=== PATIENT | male | born 1955 | race African-American/Black ===

== ENCOUNTER 2016-12-13 13:06 | Outpatient (CLI) | payer OTHER ==
--- NOTE | 2016-12-10 15:37 | MRI ---
MRI LUMBAR SPINE WITHOUT CONTRAST: Date: 12/10/16 TECHNIQUE: Multiplanar, multisequential imaging lumbar spine obtained. HISTORY: Lumbar radiculopathy with radiation to right leg. FINDINGS: Lumbar vertebra maintain normal height. There is mild loss of disc space at L5-S1. Mild degenerative spurring from the lumbar vertebra. Lumbar vertebra signal is normally maintained. At L1-2, there is no disc bulge or protrusion. There is facet arthrosis and hypertrophy; however, no central canal or foraminal stenosis. At L2-3, there is mild disc bulge. Moderate facet arthrosis and hypertrophy. Mild central canal sten osis. There is bilateral foraminal encroachment at this level due to the diffuse disc bulge and face t hypertrophy. At L3-4, mild disc bulge flattens the anterior thecal sac. Moderate facet hypertrophy. Mild central canal stenosis. Mild foraminal encroachment bilaterally. At L4-5, there is broad based disc bulge. Moderate facet and ligamentous hypertrophy. Mild to modera te central canal stenosis. Bilateral foraminal stenosis. At L5-S1, there is a minimal anterolisthesis. A rather prominent broad based disc bulge flattens the thecal sac. Prominent facet hypertrophy. Mild to moderate central canal stenosis. Bilateral foramin al stenosis. IMPRESSION: 1. Diffuse broad based disc bulges, most pronounced at L5-S1. There is mild to moderate central can al stenosis and bilateral foraminal stenosis at this level. 2. Mild disc bulge and central canal stenosis at L2-3, L3-4, and L4-5 as described above. POS: [facility]
== END 2016-12-13 13:07 | disposition home or self-care (01) ==
LOC: TBSIIMAG 13:06
PROVIDERS: ATTEND Neurological Surgery
DX: M51.16 Intervertebral disc disorders with radiculopathy, lumbar region (principal); M48.061 Spinal stenosis, lumbar region without neurogenic claudication
CPT/HCPCS: 72148

== ENCOUNTER 2017-04-24 22:50 | Emergency (ER) | payer OTHER ==
[2017-04-24] MEDS ORDERED: Ondansetron HCl/PF 4 MG/2 ML Vial ONE (23:18)
[2017-04-24 23:20] LABS: #Basophils 0.1 thou/uL (0.0-0.2); #Eosinphils 0.3 thou/uL (0.0-0.7); #Lymphocytes 2.5 thou/uL (1.20-3.40); #Monocytes 0.3 thou/uL (0.11-0.59); #Neutrophils 2.4 thou/uL (1.40-6.50); %Basophils 1.9 % (0.0-1.0); %Eosinophils 5.1 % (0.0-10.0); %Monocytes 5.9 % (0.0-10.0); %Neutrophils 43.2 % (42.0-75.0); Hemoglobin 13.2 g/dL (14.0-18.0); Mean Corpuscular HGB CONC 34.4 g/dL (32.0-36.0); Mean Corpuscular Hemoglobin 26.9 pg (27.0-31.0); Mean Corpuscular Volume 78.4 fl (80.0-94.0); Mean Platelet Volume 9.2 fL (7.4-10.4); Platelet Count 221 thou/uL (130-400); RBC Distribution Width 14.3 % (11.5-14.5); White Blood Cell (WBC) Count 5.6 thou/uL (4.8-10.8)
[2017-04-24 23:36] LABS: ALT (SGPT) 25 U/L (8-55); AST (SGOT) 23 U/L (5-34); Albumin 4.1 g/dL (3.5-5.0); Alkaline Phosphatase 69 U/L (40-150); Anion Gap 15 mmol/L (10-20); BUN (Urea Nitrogen) 17 mg/dL (8.4-25.7); Bilirubin, Total 0.6 mg/dL (0.2-1.2); Calc. Creatinine Clearance 0 mL/min (70-130); Calcium 9.1 mg/dL (7.8-10.44); Carbon Dioxide 24 mmol/L (22-29); Chloride 104 mmol/L (98-107); Estimated GFR-MDRD Greater than 90; Glucose 171 mg/dL (70-105); Lipase 8 U/L (8-78); Protein, Total 7.1 g/dL (6.0-8.3); Sodium 139 mmol/L (136-145)
[2017-04-24 23:38] LABS: CKMB 5.9 ng/mL (0-6.6); Troponin I 0.015 ng/mL (< 0.028)
== END 2017-04-25 00:19 | disposition home or self-care (01) ==
LOC: SCSER 22:50
DX: R11.2 Nausea with vomiting, unspecified (principal); E11.9 Type 2 diabetes mellitus without complications; N40.0 Benign prostatic hyperplasia without lower urinary tract symptoms; I25.2 Old myocardial infarction; I25.10 Atherosclerotic heart disease of native coronary artery without angina pectoris; E78.5 Hyperlipidemia, unspecified; F17.210 Nicotine dependence, cigarettes, uncomplicated; F41.9 Anxiety disorder, unspecified; F32.9 Major depressive disorder, single episode, unspecified; Z79.899 Other long term (current) drug therapy; Z79.4 Long term (current) use of insulin
CPT/HCPCS: 80053; 82553; 83690; 84484; 85025; 93005; 96361; 96374; J2405

== ENCOUNTER 2017-05-08 14:12 | Outpatient (CLI) | payer OTHER | END 2017-05-08 14:13 | disposition home or self-care (01) | LOC: CTENTCT 14:12 | PROVIDERS: ATTEND Otolaryngology Plastic Surgery within the Head & Neck | DX: J34.2 Deviated nasal septum (principal) | CPT/HCPCS: 70486 ==

== ENCOUNTER 2017-05-28 07:06 | Day surgery (SDC) | payer OTHER ==
[2017-05-27 12:27] VITALS: BMI 30.8
[2017-05-28] MEDS ORDERED: Oxymetazoline HCl 0.05% ( 15 ML ) ONE ×2 (09:45→09:51)
[2017-05-28] MEDS ORDERED: Fentanyl 100 MCG/2 ML VIAL ONE ×2 (09:51→11:46)
[2017-05-28] MEDS ORDERED: Lidocaine 1% w/Epinephrine 1:200K 30 ML VIAL ONE (09:51)
[2017-05-28] MEDS ORDERED: Midazolam HCl 2 mg/2 ml Vial ONE (09:51)
[2017-05-28] MEDS ORDERED: Bacitracin Zinc Ointment 30 gm TUBE ONE (09:51)
[2017-05-28] MEDS ORDERED: Meperidine HCl/PF 25 MG/ML VIAL ONE (11:52)
[2017-05-28] MEDS ORDERED: HYDROcodone/Acetaminophen 5/325 mg Tablet ONE (12:46)
[2017-05-28] MEDS ORDERED: Lidocaine 1% PF 5 ML VIAL ONE (13:12)
[2017-05-28] MEDS ORDERED: PROPOFOL 200 MG/20 ML VIAL ONE (13:12)
[2017-05-28] MEDS ORDERED: Succinylcholine Chloride 20 MG/ML 10 ml SYRINGE FS ONE (13:12)
[2017-05-28] MEDS ORDERED: Ondansetron HCl/PF 4 MG/2 ML Vial ONE (13:12)
[2017-05-28] MEDS ORDERED: Dexamethasone 20 MG/5 ML VIAL ONE (13:12)
--- NOTE | 2017-05-29 13:45 | OP ---
DATE OF PROCEDURE: 06/03/2017 PREOPERATIVE DIAGNOSES: 1. Chronic rhinosinusitis. 2. Nasal septal deviation. 3. Bilateral inferior turbinate hypertrophy. POSTOPERATIVE DIAGNOSES: 1. Chronic rhinosinusitis. 2. Nasal septal deviation. 3. Bilateral inferior turbinate hypertrophy. PROCEDURES: 1. Bilateral endoscopic sinus surgery, total ethmoidectomies. 2. Bilateral endoscopic sinus surgery, maxillary antrostomies. 3. Bilateral endoscopic sinus surgery, frontal sinusotomy. 4. Bilateral endoscopic sinus surgery, sphenoidotomies. 5. Nasal septoplasty. 6. Bilateral inferior turbinate submucosal resection. SURGEON: Eron Bonds M.D. ESTIMATED BLOOD LOSS: 50 mL. COMPLICATIONS: None. ANESTHESIA: GETA. PROCEDURE IN DETAIL #1: Patient was taken to the operating room and placed supine on the table. Gener al endotracheal anesthesia was obtained by the Anesthesia staff. Tube was secured in the left lower l ip. Patient was then placed in the beach chair position, and Afrin pledgets were placed in the nasal cavity. Injections of 1% lidocaine with 1:100,000 epinephrine were made into the nasal septum as wel l as the inferior turbinates. Patient was then prepped and draped in standard surgical fashion for na shun surgery. Following this, the Afrin pledgets were removed. A [place] incision was made on the left nasal septum. Submucoperichondrial dissection was performed. The deviated portions of the septum in cluded portions of the cartilage and the bony septum. These isolated areas were removed using three c utting rongeurs. There was noted to be a large dorsal and caudal strut, left intact for support of th e nose. The mucoperichondrial flaps were then reapproximated using a 4-0 gut stitch. Any straight pie lucy of cartilage were crushed prior to this and placed between the mucoperichondrial flaps. Following this, the inferior turbinates were then punctured with a submucosal coblation wand, and submucosal c oblations were performed of multiple areas of the inferior portion of the anterior inferior turbinate . PROCEDURE IN DETAIL #2: Patient was taken to the operating room and placed supine on the table. Gene ral endotracheal anesthesia was obtained by the Anesthesia staff. Tube was secured in the left lower lip. Patient was then placed in the beach chair position, and Afrin pledgets were placed in the nasal cavity. Injections of 1% lidocaine with 1:100,000 epinephrine were made into the nasal septum as wel l as the inferior turbinates. Patient was then prepped and draped in standard surgical fashion for na shun surgery. Following this, the Afrin pledgets were removed. A [place] incision was made on the left nasal septum. Submucoperichondrial dissection was performed. The deviated portions of the septum inc luded portions of the cartilage and the bony septum. These isolated areas were removed using three cu tting rongeurs. There was noted to be a large dorsal and caudal strut, left intact for support of the nose. The mucoperichondrial flaps were then reapproximated using a 4-0 gut stitch. Any straight piec es of cartilage were crushed prior to this and placed between the mucoperichondrial flaps. Following this, the inferior turbinates were then punctured with a submucosal coblation wand, and submucosal co blations were performed of multiple areas of the inferior portion of the anterior inferior turbinate. Please note that the submucosal microdebrider was used to submucosally resect the anterior and inferi or portions of the inferior turbinates bilaterally. Following this, the inferior turbinates were gen tly laterally fractured with [place] elevator. Following this, the 0 degree scope was advanced into th e nasal cavity. A 1% lidocaine with 1:100,000 epinephrine was injected via a 27 gauge needle into th e lateral nasal wall and middle turbinates bilaterally. Following this, the middle turbinates were g ently medialized with [place] elevator exposing the uncinate process. Following this, uncinate was ant eriorly fractured using the ball-ended probe and was removed using the straight microdebrider and upb iting [place] forceps. Following this, the ethmoidal bulla was identified bilaterally and was punc tured on its medial and inferior aspect and was removed using the straight microdebrider and upbiting [place] forceps. Following this, the grand lamella was identified and was then punctured into the posterior ethmoidal cells. Working from posterior to anterior, the ethmoidal cells were opened usin g the mucosal-sparing technique using a 0 degree microdebrider and curved microdebrider. Following t his, the sphenoid sinuses were approached by staying medial to the middle turbinate where the attachm ent to the superior turbinate to the postnasal wall was identified to stay medial and inferior to thi s. The sphenoidotomy was created using the straight microdebrider bilaterally. Following this, the sphenoidotomies were widened medially and inferiorly with the microdebrider. Following this, the 45 degree scope and upbiting microdebrider were then used to further open the frontal recess cells and t he frontal sinus ostia bilaterally. Following this, the nasal cavity was irrigated. Meropacks were placed within the middle meatus. [place] splints were placed and secured. The patient tolerated the p rocedure well.
--- NOTE | 2017-06-23 11:14 | EKG ---
Test Reason : PREOP Blood Pressure : / mmHG Vent. Rate : 050 BPM Atrial Rate : 050 BPM P-R Int : 158 ms QRS Dur : 092 ms QT Int : 446 ms P-R-T Axes : 062 -07 -07 degrees QTc Int : 406 ms Sinus bradycardia Otherwise normal ECG When compared with ECG of 24-APR-2017 23:06, (Unconfirmed) Electronic demand pacing is no longer Present Premature ventricular complexes are no longer Present Confirmed by CLEVE KNOX M.D. ([id number] on 06/23/2017 11:14:03 AM Referred By: RICARDO Confirmed By:CLEVE KNOX M.D.
== END 2017-05-28 13:55 | disposition home or self-care (01) ==
LOC: SDC 07:06
PROVIDERS: ATTEND Otolaryngology Plastic Surgery within the Head & Neck
PROC: 099R8ZZ Drainage of Left Maxillary Sinus, Via Natural or Artificial Opening Endoscopic (ICD-10-PCS; principal; 2017-05-28)
PROC: 09TL8ZZ Resection of Nasal Turbinate, Via Natural or Artificial Opening Endoscopic (ICD-10-PCS; principal; 2017-05-28)
PROC: 09CW8ZZ Extirpation of Matter from Right Sphenoid Sinus, Via Natural or Artificial Opening Endoscopic (ICD-10-PCS; principal; 2017-05-28)
PROC: 09RM47Z Replacement of Nasal Septum with Autologous Tissue Substitute, Percutaneous Endoscopic Approach (ICD-10-PCS; principal; 2017-05-28)
PROC: 09TU8ZZ Resection of Right Ethmoid Sinus, Via Natural or Artificial Opening Endoscopic (ICD-10-PCS; principal; 2017-05-28)
PROC: 099Q8ZZ Drainage of Right Maxillary Sinus, Via Natural or Artificial Opening Endoscopic (ICD-10-PCS; principal; 2017-05-28)
PROC: 09BT8ZZ Excision of Left Frontal Sinus, Via Natural or Artificial Opening Endoscopic (ICD-10-PCS; principal; 2017-05-28)
PROC: 09TV8ZZ Resection of Left Ethmoid Sinus, Via Natural or Artificial Opening Endoscopic (ICD-10-PCS; principal; 2017-05-28)
PROC: 09BS8ZZ Excision of Right Frontal Sinus, Via Natural or Artificial Opening Endoscopic (ICD-10-PCS; principal; 2017-05-28)
PROC: 09CX8ZZ Extirpation of Matter from Left Sphenoid Sinus, Via Natural or Artificial Opening Endoscopic (ICD-10-PCS; principal; 2017-05-28)
DX: Z88.5 Allergy status to narcotic agent; R03.0 Elevated blood-pressure reading, without diagnosis of hypertension; Z79.891 Long term (current) use of opiate analgesic; J34.2 Deviated nasal septum; I25.2 Old myocardial infarction; J34.3 Hypertrophy of nasal turbinates; E11.40 Type 2 diabetes mellitus with diabetic neuropathy, unspecified; Z79.899 Other long term (current) drug therapy; Z79.4 Long term (current) use of insulin; N41.1 Chronic prostatitis; Z79.51 Long term (current) use of inhaled steroids; Z88.2 Allergy status to sulfonamides; M19.90 Unspecified osteoarthritis, unspecified site; F32.9 Major depressive disorder, single episode, unspecified; E78.5 Hyperlipidemia, unspecified; J32.8 Other chronic sinusitis; Z88.8 Allergy status to other drugs, medicaments and biological substances; Z79.82 Long term (current) use of aspirin; Z79.1 Long term (current) use of non-steroidal anti-inflammatories (NSAID); N40.0 Benign prostatic hyperplasia without lower urinary tract symptoms
CPT/HCPCS: 36416; 93005; 93010; 96374; J1100; J2001; J2175; J2250; J2405; J2704; J3010

== ENCOUNTER 2017-11-25 15:19 | Outpatient (CLI) | payer OTHER ==
[2017-11-25 16:30] LABS: Hemoglobin 13.6 g/dL (14.0-18.0); Mean Corpuscular HGB CONC 34.3 g/dL (32.0-36.0); Mean Corpuscular Volume 81.6 fL (78.0-98.0); Mean Platelet Volume 9.3 fL (7.4-10.4); Platelet Count 188 thou/uL (130-400); RBC Distribution Width 13.8 % (11.5-14.5); Red Blood Cell (RBC) Count 4.86 mill/uL (4.70-6.10)
[2017-11-25 16:37] LABS: INR-International Normal Ratio 0.9; PTT 24.7 SEC (22.9-36.1); Prothrombin Time 12.4 SEC (12.0-14.7)
[2017-11-25 16:48] LABS: ALT (SGPT) 21 U/L (8-55); AST (SGOT) 13 U/L (5-34); Albumin 4.1 g/dL (3.5-5.0); Alkaline Phosphatase 71 U/L (40-150); Anion Gap 10 mmol/L (10-20); BUN (Urea Nitrogen) 15 mg/dL (8.4-25.7); Bilirubin, Total 0.4 mg/dL (0.2-1.2); Calc. Creatinine Clearance 0 mL/min (70-130); Calcium 9.1 mg/dL (7.8-10.44); Carbon Dioxide 24 mmol/L (22-29); Chloride 105 mmol/L (98-107); Estimated GFR-MDRD Greater than 90; Globulin 2.6 g/dL (2.4-3.5); Glucose 191 mg/dL (70-105); Potassium 4.3 mmol/L (3.5-5.1); Protein, Total 6.7 g/dL (6.0-8.3); Sodium 135 mmol/L (136-145)
== END 2017-11-25 15:20 | disposition home or self-care (01) ==
LOC: LABBT 15:19
PROVIDERS: ATTEND Internal Medicine Cardiovascular Disease
DX: Z01.812 Encounter for preprocedural laboratory examination (principal); R07.9 Chest pain, unspecified
CPT/HCPCS: 80053; 85027; 85610; 85730

== ENCOUNTER 2017-11-26 05:46 | Day surgery (SDC) | payer OTHER ==
[2017-11-25 15:39] VITALS: BMI 30.8
[2017-11-26] MEDS ORDERED: Sodium Chloride 0.9% 1,000 ML IV SCH ×2 (06:30→12:14)
[2017-11-26] MEDS ORDERED: Diazepam 5 MG TAB PO SCH (06:30)
[2017-11-26] MEDS ORDERED: Diazepam 5 MG TAB ONE (06:41)
[2017-11-26] MEDS ORDERED: Lidocaine 1% (PF) 30 ML VIAL ONE (06:42)
[2017-11-26 06:57] LABS: Cardiac Risk 5.5 (Less than 4.5)
[2017-11-26] MEDS ORDERED: Nitroglycerin 100MG/250ML BOT 0 ML ONE (07:18)
[2017-11-26] MEDS ORDERED: Heparin 10,000 UNITS/1 ML VIAL ONE (07:18)
[2017-11-26] MEDS ORDERED: Fentanyl 100 MCG/2 ML VIAL ONE (07:21)
[2017-11-26] MEDS ORDERED: Midazolam HCl 2 mg/2 ml Vial ONE (07:21)
[2017-11-26] MEDS ORDERED: Iopamidol 370 76% 100 ML VIAL ONE (10:43)
[2017-11-26] MEDS ORDERED: traMADol HCl 50 MG TAB ONE (12:02)
[2017-11-26] MEDS ORDERED: Nitroglycerin 0.4 MG TAB (25 Tab Bottle) SL PRN (12:14)
[2017-11-26] MEDS ORDERED: Acetaminophen/Codeine 30-300mg Tablet PO PRN ×2 (12:14)
[2017-11-26] MEDS ORDERED: traMADol HCl 50 MG TAB PO PRN (12:14)
== END 2017-11-26 13:00 | disposition home or self-care (01) ==
LOC: CCL 05:46
PROVIDERS: ATTEND Internal Medicine Cardiovascular Disease
PROC: B2111ZZ Fluoroscopy of Multiple Coronary Arteries using Low Osmolar Contrast (ICD-10-PCS; principal; 2017-11-26)
DX: I25.118 Atherosclerotic heart disease of native coronary artery with other forms of angina pectoris (principal); E11.9 Type 2 diabetes mellitus without complications; I10 Essential (primary) hypertension; E78.5 Hyperlipidemia, unspecified; Z88.2 Allergy status to sulfonamides; Z88.8 Allergy status to other drugs, medicaments and biological substances; Z79.84 Long term (current) use of oral hypoglycemic drugs; Z79.899 Other long term (current) drug therapy
CPT/HCPCS: 36416; 76942; 80053; 80061; 85027; 85610; 85730; 93458; 99152; C1769; J1644; J2001; J2250; J3010

== ENCOUNTER 2018-01-22 17:05 | Emergency (ER) | payer OTHER ==
--- NOTE | 2018-01-22 19:36 | RAD ---
FRONTAL RADIOGRAPH PELVIS: 01/22/18 COMPARISON: None. HISTORY: Injured left hip two weeks ago. FINDINGS: There is a total hip arthroplasty on the left. There is mild periarticular osteopenia adjacent to the left acetabular component which may be on the basis of subchondral cystic degenerative change. The p elvic ring appears intact. There is no widening of the sacroiliac joints or the pubic symphysis. No d isplaced fracture identified. There is prominent degenerative change involving the right hip with sup erior joint space narrowing, subchondral sclerosis and osteophyte formation. IMPRESSION: Chronic findings as detailed above. No displaced fracture or dislocation seen. POS: [facility]
--- NOTE | 2018-01-22 19:41 | RAD ---
TWO VIEWS LEFT HIP: Date: 01-22-18 Comparison: None. History: Injury two weeks ago. FINDINGS: There is a left total hip arthroplasty with no evidence for hardware failure. No acute fracture or ev idence of dislocation. IMPRESSION: No acute findings. POS: [facility]
== END 2018-01-22 18:19 | disposition home or self-care (01) ==
LOC: SCSER 17:05
DX: M25.552 Pain in left hip (principal); E11.9 Type 2 diabetes mellitus without complications; E78.5 Hyperlipidemia, unspecified; I10 Essential (primary) hypertension; I25.10 Atherosclerotic heart disease of native coronary artery without angina pectoris; I25.2 Old myocardial infarction; F32.9 Major depressive disorder, single episode, unspecified; F17.210 Nicotine dependence, cigarettes, uncomplicated; F41.9 Anxiety disorder, unspecified; Z96.642 Presence of left artificial hip joint; Z71.6 Tobacco abuse counseling; Z79.82 Long term (current) use of aspirin; Z79.4 Long term (current) use of insulin; Z79.899 Other long term (current) drug therapy; X50.0XXA Overexertion from strenuous movement or load, initial encounter
CPT/HCPCS: 72170; 99406

== ENCOUNTER 2018-04-06 10:59 | Outpatient (CLI) | payer OTHER ==
[2018-04-06 11:41] LABS: Anion Gap 12 mmol/L (10-20); BUN (Urea Nitrogen) 17 mg/dL (8.4-25.7); Calc. Creatinine Clearance 0 mL/min (70-130); Calcium 9.2 mg/dL (7.8-10.44); Carbon Dioxide 25 mmol/L (22-29); Chloride 107 mmol/L (98-107); Estimated GFR-MDRD 82; Glucose 124 mg/dL (70-105); Sodium 140 mmol/L (136-145)
[2018-04-06 11:42] LABS: Bilirubin Negative (Negative); Blood, Urine Negative (Negative); Clarity Clear (Clear); Glucose, Urine (Dipstick) Negative (Negative); Leukocyte Trace (Negative); Nitrite Negative (Negative); Protein, Urine (Dipstick) 30 mg/dL (Neg-Trace)
[2018-04-06 11:50] LABS: Bacteria/HPF None Seen HPF (None Seen); Hyaline Casts/LPF 0-3 HYALINE CAST LPF (0-3 Hyaline); RBC/HPF 0-3 HPF (0-3); Squamous Epithelial 0-3 HPF (0-3)
--- NOTE | 2018-04-06 13:25 | ULT ---
RENAL ULTRASOUND: History: Renal cyst. Comparison: 03-14-16 Technique: Sagittal and transverse imaging of the kidneys performed. FINDINGS: Bilaterally, no hydronephrosis. Right kidney measures 13.2 x 6.6 x 5.5 cm. Left kidney measures 7.5 x 6.6 x 12.0 cm. In the upper pole of the right kidney, there is an anechoic focus with through transmission measuring 2.9 x 2.6 x 2.5 cm, compatible with a cyst. In the midportion of the left kidney, there is a 1.6 x 1 .5 x 1.7 cm cyst, likely representing a parapelvic cyst. Urinary bladder is unremarkable. Pre void volume is 97 ml. IMPRESSION: 1. When compared to the previous examination, no appreciable change. 2. Bilateral renal cyst. POS: [facility]
== END 2018-04-06 11:00 ==
LOC: SCSULT 10:59
PROVIDERS: ATTEND Urology
DX: N40.1 Benign prostatic hyperplasia with lower urinary tract symptoms (principal); N28.1 Cyst of kidney, acquired
CPT/HCPCS: 36415; 76770; 80048; 81001; 87086

== ENCOUNTER 2018-05-12 15:55 | Emergency (ER) | payer OTHER ==
--- NOTE | 2018-05-12 17:57 | RAD ---
LEFT HIP TWO VIEW 05/12/18 HISTORY: Pain. COMPARISON: Radiograph 2018. FINDINGS: Left hip total arthroplasty is in place. No evidence of hardware loosening. Stress shielding along the lateral margin of the proximal femoral calcar. The left obturator ring is intact. IMPRESSION: Intact hip arthroplasty. POS: [facility]
[2018-05-12] MEDS ORDERED: Ketorolac Tromethamine 30 MG/ML VIAL ONE (18:33)
== END 2018-05-12 19:20 | disposition home or self-care (01) ==
LOC: ERS 15:55
DX: M25.552 Pain in left hip (principal); I25.2 Old myocardial infarction; E78.5 Hyperlipidemia, unspecified; M19.90 Unspecified osteoarthritis, unspecified site; E11.40 Type 2 diabetes mellitus with diabetic neuropathy, unspecified; F41.9 Anxiety disorder, unspecified; F32.9 Major depressive disorder, single episode, unspecified; F17.210 Nicotine dependence, cigarettes, uncomplicated; Z79.891 Long term (current) use of opiate analgesic; Z79.899 Other long term (current) drug therapy; Z79.4 Long term (current) use of insulin
CPT/HCPCS: 96372; J1885

== ENCOUNTER 2018-05-26 12:42 | Emergency (ER) | payer OTHER ==
[2018-05-26] MEDS ORDERED: Ketorolac Tromethamine 30 MG/ML VIAL ONE (14:21)
--- NOTE | 2018-05-26 16:41 | CT ---
CT LUMBAR SPINE WITH CORONAL AND SAGITTAL REFORMATIONS (WITHOUT CONTRAST) 05/26/18 HISTORY: Injury, low back pain radiating to the left lateral knee. FINDINGS: Comparison made to exam of 10/05/10. Five lumbar type vertebrae is seen. Multilevel degenerative wong es are redemonstrated. Broad based disc bulges are noted at L4-5 and L5-S1 levels causing bilateral n eural foraminal stenosis at both levels and central canal stenosis at L4-5 level. No compression frac ture is seen. No other fracture or subluxation is otherwise identified. The left adrenal adenoma is stable. There is a hyperdense 3 cm mass in the right kidney which has inc reased in size since the last exam. There are degenerative changes in the SI joints. IMPRESSION: 1. No evidence of acute fracture or subluxation. 2. Degenerative changes with bilateral neural foraminal stenosis at L4-5 and L5-S1 levels and ce ntral canal stenosis at L4-5 level. 3. Hyperdense right renal mass. This should be evaluated with MRI using the renal mass protocol. 4. Left adrenal adenoma. POS: [facility]
== END 2018-05-26 16:02 | disposition home or self-care (01) ==
LOC: SCSER 12:42
DX: M51.36 Other intervertebral disc degeneration, lumbar region (principal); M48.061 Spinal stenosis, lumbar region without neurogenic claudication; N28.89 Other specified disorders of kidney and ureter; G89.29 Other chronic pain; M54.5 Low back pain
CPT/HCPCS: 36415; 72131; 80048; 82570; 84156; 96372; J1885

== ENCOUNTER 2018-06-16 14:12 | Emergency (ER) | payer OTHER ==
[2018-06-16] MEDS ORDERED: Ketorolac Tromethamine 30 MG/ML VIAL ONE (14:46)
== END 2018-06-16 14:58 | disposition home or self-care (01) ==
LOC: SCSER 14:12
DX: M79.652 Pain in left thigh (principal); I25.2 Old myocardial infarction; I25.10 Atherosclerotic heart disease of native coronary artery without angina pectoris; E78.5 Hyperlipidemia, unspecified; I10 Essential (primary) hypertension; E11.40 Type 2 diabetes mellitus with diabetic neuropathy, unspecified; F41.9 Anxiety disorder, unspecified; F32.9 Major depressive disorder, single episode, unspecified; F17.210 Nicotine dependence, cigarettes, uncomplicated; Z79.899 Other long term (current) drug therapy; Z79.82 Long term (current) use of aspirin; Z79.84 Long term (current) use of oral hypoglycemic drugs
CPT/HCPCS: 72120; 96372; J1885

== ENCOUNTER 2018-08-12 12:22 | Emergency (ER) | payer OTHER ==
[2018-08-12] MEDS ORDERED: Ketorolac Tromethamine 30 MG/ML VIAL ONE (13:10)
== END 2018-08-12 13:16 | disposition home or self-care (01) ==
LOC: SCSER 12:22
DX: M54.5 Low back pain (principal); I25.2 Old myocardial infarction; I25.10 Atherosclerotic heart disease of native coronary artery without angina pectoris; E78.5 Hyperlipidemia, unspecified; I10 Essential (primary) hypertension; E11.40 Type 2 diabetes mellitus with diabetic neuropathy, unspecified; M19.90 Unspecified osteoarthritis, unspecified site; F41.9 Anxiety disorder, unspecified; F32.9 Major depressive disorder, single episode, unspecified; F17.210 Nicotine dependence, cigarettes, uncomplicated; Z79.82 Long term (current) use of aspirin; Z79.899 Other long term (current) drug therapy
CPT/HCPCS: 36415; 80048; 82570; 84156; 96372; J1885

== ENCOUNTER 2018-09-11 20:41 | Emergency (ER) | payer OTHER ==
[2018-09-11] MEDS ORDERED: Ketorolac Tromethamine 30 MG/ML VIAL ONE (21:18)
== END 2018-09-11 21:30 | disposition home or self-care (01) ==
LOC: SCSER 20:41
DX: M54.5 Low back pain (principal); G89.29 Other chronic pain; E11.40 Type 2 diabetes mellitus with diabetic neuropathy, unspecified; I25.10 Atherosclerotic heart disease of native coronary artery without angina pectoris; I25.2 Old myocardial infarction; E78.5 Hyperlipidemia, unspecified; M19.90 Unspecified osteoarthritis, unspecified site; F41.9 Anxiety disorder, unspecified; F32.9 Major depressive disorder, single episode, unspecified; F17.210 Nicotine dependence, cigarettes, uncomplicated; Z79.4 Long term (current) use of insulin; Z79.82 Long term (current) use of aspirin; Z79.899 Other long term (current) drug therapy
CPT/HCPCS: 96372; 99283; J1885

== ENCOUNTER 2018-10-25 15:06 | Emergency (ER) | payer OTHER ==
[~2018-10-25 15:06] MED LIST: Iopamidol 370 76% 100 ML VIAL ONE
[2018-10-25] MEDS ORDERED: Promethazine HCl 25 MG/ML VIAL ONE (15:58)
[2018-10-25] MEDS ORDERED: diphenhydrAMINE 50 MG/ML VIAL ONE (15:58)
[2018-10-25] MEDS ORDERED: Acetaminophen 500 MG TAB ONE (16:00)
[2018-10-25 16:03] LABS: Hemoglobin 12.6 g/dL (14.0-18.0); Mean Corpuscular HGB CONC 33.8 g/dL (32.0-36.0); Mean Corpuscular Hemoglobin 27.5 pg (27.0-31.0); Mean Corpuscular Volume 81.4 fL (78.0-98.0); Mean Platelet Volume 9.4 fL (7.4-10.4); Platelet Count 187 thou/uL (130-400); RBC Distribution Width 13.4 % (11.5-14.5); Red Blood Cell (RBC) Count 4.59 mill/uL (4.70-6.10); White Blood Cell (WBC) Count 4.9 thou/uL (4.8-10.8)
[2018-10-25 16:12] LABS: ALT (SGPT) 20 U/L (8-55); AST (SGOT) 15 U/L (5-34); Albumin 3.7 g/dL (3.4-4.8); Alkaline Phosphatase 67 U/L (40-150); Anion Gap 16 mmol/L (10-20); BUN (Urea Nitrogen) 9 mg/dL (8.4-25.7); Bilirubin, Total 0.2 mg/dL (0.2-1.2); Calc. Creatinine Clearance 0 mL/min (70-130); Calcium 8.8 mg/dL (7.8-10.44); Carbon Dioxide 25 mmol/L (23-31); Chloride 105 mmol/L (98-107); Estimated GFR-MDRD 83; Globulin 2.7 g/dL (2.4-3.5); Glucose 253 mg/dL (80-115); Potassium 4.5 mmol/L (3.5-5.1); Protein, Total 6.4 g/dL (5.8-8.1); Sodium 141 mmol/L (136-145)
[2018-10-25 16:18] LABS: Eosinophils 1 % (0-10); Lymphocytes 50 % (21-51); MDiff Complete? YES; Monocytes 3 % (0-10); Neutrophil 46 % (42-75); Platelet Morphology Comment Appears Adequate
--- NOTE | 2018-10-25 17:18 | CT ---
CT HEAD WITHOUT CONTRAST CTA HEAD WITH IV CONTRAST AND 3D POST PROCESSING: History: Headache. FINDINGS: No evidence of infarct, hemorrhage, midline shift, or abnormal extraaxial fluid collections are seen. The ventricular size is normal and the basilar cisterns patent. The bony calvarium is intact. There is a mucous retention cyst versus polyp in the right maxillary sinus. CTA demonstrates good flow in the intracranial vertebral, basilar, and carotid artery systems without evidence of branch occlusion, high grade stenosis, or aneurysm formation. IMPRESSION: 1. No CT evidence of acute intracranial process. 2. Normal CTA of the brain. 3. Mucous retention cyst versus polyp in the right maxillary sinus. POS: [facility]
== END 2018-10-25 17:41 | disposition home or self-care (01) ==
LOC: SCSER 15:06
DX: R51 Headache (principal); I10 Essential (primary) hypertension; E11.40 Type 2 diabetes mellitus with diabetic neuropathy, unspecified; E78.5 Hyperlipidemia, unspecified; E78.00 Pure hypercholesterolemia, unspecified; F32.9 Major depressive disorder, single episode, unspecified; F41.9 Anxiety disorder, unspecified; F17.210 Nicotine dependence, cigarettes, uncomplicated; I25.2 Old myocardial infarction; I25.10 Atherosclerotic heart disease of native coronary artery without angina pectoris; M19.90 Unspecified osteoarthritis, unspecified site; Z79.4 Long term (current) use of insulin; Z79.899 Other long term (current) drug therapy
CPT/HCPCS: 70496; 80053; 85025; 93005; 96361; 96374; 96375; J1200; J2550; Q9967

== ENCOUNTER 2018-11-02 16:00 | Inpatient (IN) | payer OTHER ==
[2018-11-02 16:37] VITALS: BMI 30.8
[2018-11-04] MEDS ORDERED: Sodium Chloride 0.9% 10 ML ONE (09:09)
[2018-11-04] MEDS ORDERED: Fentanyl 100 MCG/2 ML VIAL ONE ×5 (09:12→12:24)
[2018-11-04] MEDS ORDERED: Meperidine HCl/PF 25 MG/ML VIAL ONE (11:23)
[2018-11-04] MEDS ORDERED: Mag-Al 1200 mg/1200 mg/30 ML UDCUP PO PRN (11:28)
[2018-11-04] MEDS ORDERED: Ondansetron PF 4 MG/2 ML Vial IM PRN (11:28)
[2018-11-04] MEDS ORDERED: HYDROcodone/Acetaminophen 10/325 mg Tablet PO PRN (11:28)
[2018-11-04] MEDS ORDERED: Promethazine HCl 25 MG/ML VIAL IM PRN (11:28)
[2018-11-04] MEDS ORDERED: Promethazine 25 MG TAB PO PRN (11:28)
[2018-11-04] MEDS ORDERED: Promethazine HCl 12.5 MG SUPP PR PRN (11:28)
[2018-11-04] MEDS ORDERED: traMADol HCl 50 MG TAB PO PRN ×2 (11:28)
[2018-11-04] MEDS ORDERED: Milk Of Magnesia 30 ML UDCUP PO PRN (11:28)
[2018-11-04] MEDS ORDERED: diphenhydrAMINE 50 MG/ML VIAL IVP PRN (11:28)
[2018-11-04] MEDS ORDERED: PROPOFOL 200 MG/20 ML VIAL ONE (12:42)
[2018-11-04] MEDS ORDERED: Dexamethasone 20 MG/5 ML VIAL ONE (12:42)
[2018-11-04] MEDS ORDERED: Ondansetron PF 4 MG/2 ML Vial ONE (12:42)
[2018-11-04] MEDS ORDERED: Rocuronium Bromide 10 MG/ML (10ML VIAL) ONE (12:42)
[2018-11-04] MEDS ORDERED: Lidocaine 1% PF 5 ML VIAL ONE (12:42)
[2018-11-04] MEDS: HYDROcodone/Acetaminophen 10/325 mg Tablet PO PRN ×3 (14:42→22:19)
[2018-11-04] MEDS: Sodium Chloride 0.9% 1,000 ML IV SCH (14:48)
[2018-11-04] MEDS: CEFAZOLIN 2 GM in Premix Bag 1 BAG IVPB SCH ×2 (16:47→23:47)
--- NOTE | 2018-11-04 17:48 | OP ---
DATE OF PROCEDURE: 11/04/2018 STRENGTH AND CONDITIONING COACH: Horace. PROCEDURE PERFORMED: Right L4-L5 and right L5-S1 laminectomy, facetectomy, foraminotomy, diskectomy, interbody arthrodesis, intervertebral biomechanical device, local morselized autograft, demineralized bone matrix, posterolateral arthrodesis, pedicle screw instrumentation, right L4 through S1. DESCRIPTION OF PROCEDURE: The patient was brought to the operating room and intubated. He was rolled in a prone position on gel-filled chest rolls. An incision was made exposing L4 through S1 and the level was confirmed by x-ray. We performed complete right L4-L5 and right L5-S1 laminectomy, facetectomy, and foraminotomies and removed the intervertebral disks completely decompressing the neural elements. The disks themselves were completely removed and the bony endplates decorticated for the purpose of arthrodesis. An appropriate-sized intervertebral biomechanical PEEK device was brought into the field, filled with demineralized bone matrix local morselized autograft, and tapped in place securely at L4-L5 and L5-S1. Next, pedicle screws were placed at right L4, right L5, and right S1 using lateral fluoroscopic guidance. Farhat was secured between the screws, connected by nuts, which were final tightened. The wound was then extensively irrigated. MAC hemostasis was secured. A combination of demineralized bone matrix local morselized autograft was laid over the lamina and posterolateral surfaces for the purpose of arthrodesis. Vancomycin powder was applied and the wound was closed in anatomic layers. Job ID: [id number]
[2018-11-04] MEDS: tiZANidine HCl 4 MG TAB PO PRN (18:34)
[2018-11-04] MEDS: Fentanyl 100 MCG/2 ML VIAL SLOW IVP PRN ×2 (19:36→23:51)
[2018-11-04] MEDS ORDERED: Dextrose 50% Abboject 50 ML SYRINGE SLOW IVP PRN (20:32)
[2018-11-04] MEDS ORDERED: HumaLOG 300 UNITS/3 ML VIAL SC PRN (20:32)
[2018-11-04] MEDS ORDERED: Dextrose 5% in Water 1,000 ML IV PRN (20:32)
[2018-11-04] MEDS: DULoxetine 30 MG CAP PO SCH (20:50)
[2018-11-04] MEDS: Gabapentin 300 MG CAP PO SCH (20:50)
[2018-11-04] MEDS: Simvastatin 40 MG TAB PO SCH (20:51)
[2018-11-04] MEDS: Isosorbide Dinitrate 20 MG TAB PO SCH (20:51)
[2018-11-04] MEDS: Meperidine HCl/PF 25 MG/ML VIAL SLOW IVP PRN (22:20)
[2018-11-05] MEDS: Meperidine HCl/PF 25 MG/ML VIAL SLOW IVP PRN ×2 (02:47→06:03)
[2018-11-05] MEDS: tiZANidine HCl 4 MG TAB PO PRN (02:48)
[2018-11-05] MEDS: HYDROcodone/Acetaminophen 10/325 mg Tablet PO PRN ×4 (02:48→20:28)
[2018-11-05] MEDS: Sodium Chloride 0.9% 1,000 ML IV SCH ×2 (02:49→14:49)
--- NOTE | 2018-11-05 04:59 | CON ---
DATE OF CONSULTATION: REASON FOR CONSULTATION: Medical management. CHIEF COMPLAINT: Lower back pain and radiculopathy, presentation for elective lumbar decompression and fusion with Dr. Wells. HISTORY OF PRESENT ILLNESS: Mr. Alvarado is a 63-year-old male with past medical history significant for coronary artery disease status post stent [place] [address] Monet, hypertension, type 2 diabetes mellitus, and chronic low back pain with diagnosis of lumbar spondylosis and stenosis with radiculopathy, who presented to the hospital today for elective L4-L5, L5-S1 decompression and fusion with Dr. Wells. The patient underwent successful procedure today. He did tolerate the procedure well. He has ambulated today. He continues to complain of 10/10 back pain at this time, which has been consistent throughout his postoperative course. The patient is not able to take morphine. At this time, he has eaten without any nausea or vomiting. He has no other complaints at this time other than low back pain. REVIEW OF SYSTEMS: A 12-point review of systems performed and is negative except that stated above. PAST MEDICAL HISTORY: Osteoarthritis, hypertension, diabetes, chronic prostatitis and BPH, history of SD, hyperlipidemia, depression, neuropathy, chronic prostatitis, history of gross hematuria, which has resolved, lumbar spondylosis and stenosis as mentioned. PAST SURGICAL HISTORY: Cardiac stent in 2009, rotator cuff repair in 01/2013, cystoscopy and washout with SINA Ortiz. FAMILY HISTORY: Positive for prostate cancer in his father. Positive for stomach cancer in his mother. SOCIAL HISTORY: Patient is a current one pack per day smoker. He drinks alcohol occasionally. He is and his is at the bedside. ALLERGIES: MORPHINE, LISINOPRIL, SULFA. HOME MEDICATIONS: 1. Aspirin 81 mg q.a.m. 2. Humulin 70/30 40 units subcu b.i.d. before meals. 3. Metformin 500 mg p.o. b.i.d. with meals. 4. Sublingual nitroglycerin p.r.n. chest pain. 5. Zofran 4 mg tablet one tablet p.o. p.r.n. 6. Amlodipine 10 mg tablet daily. 7. Duloxetine 30 mg p.o. b.i.d. 8. Flonase 1 spray nasally q.a.m. 9. Gabapentin 300 mg p.o. b.i.d. 10. Isosorbide dinitrate 40 mg p.o. b.i.d. 11. Losartan 12.5 mg p.o. daily. 12. Pantoprazole 20 mg p.o. q.a.m. 13. Simvastatin 40 mg p.o. q.p.m. PHYSICAL EXAMINATION: VITAL SIGNS: Blood pressure is 161/90, pulse 69, respirations 20, O2 saturation 97% on room air, temperature is 98. GENERAL: The patient is a well-formed male, resting in bed, mild distress secondary to back pain. HEENT: Head is atraumatic and normocephalic. Mucous membranes are moist. NECK: Trachea is midline. No JVD. CV: S1 and S2. Regular rate and rhythm. LUNGS: Regular respiratory rate and pattern, overall clear. ABDOMEN: Positive bowel sounds. Soft. EXTREMITIES: The patient has no edema. Both lower extremities show +5/5 strength bilaterally. NEUROLOGIC: Cranial nerves 2 through 12 are grossly intact. The patient is nonfocal. SKIN: Warm and dry. LABORATORY DATA: From 11/02/2018, white blood cell count 6.1, hemoglobin 13.8, hematocrit 39.5%, platelets are 179. Sodium 138, potassium 4.2, BUN 13, creatinine 0.93. His glucose is 173, AST 15, ALT 20, alkaline phosphatase today is 67. ASSESSMENT: 1. Lumbar spondylosis and stenosis with radiculopathy, status post L4-L5, L5-S1 decompression and fusion with Dr. Wells. 2. Coronary artery disease status post stent, stable, followed by Dr. Monet. 3. Hypertension. 4. Type 2 diabetes mellitus, requiring insulin. 5. Benign prostatic hypertrophy and chronic prostatitis, stable. PLAN: We will add the patient's home antihypertensives and continue to manage and watch his blood pressure. I will start a sliding scale insulin. Continue prophylactic antibiotic coverage per surgical team. We will continue pain control and PT. Further recommendations based on hospital course. Thank you for the consult. Job ID: [id number]
[2018-11-05] MEDS: HumaLOG 300 UNITS/3 ML VIAL SC PRN ×2 (05:55→11:37)
--- NOTE | 2018-11-05 06:07 | PRG ---
DATE OF SERVICE: 11/05/2018 SUBJECTIVE: Patient is postoperative day #1, status post L4 to S1 decompression and fusion. Following the surgery, he was transitioned to the Med/Surg floor. He initially had significant issues with pain control. He required additional dose of fentanyl on the floor. We discussed doing a WILDLIFE OFFICER for pain control; however, patient began to improve after this and thus far has not needed it. He has been otherwise tolerating a regular diet and voiding appropriately. He has been up ambulating short distances back and forth to the bathroom. He did have some drainage from his incision requiring reinforcement of the dressing, but this appears to have improved. OBJECTIVE: On exam this morning, the patient is resting comfortably, is in no acute distress. He has free active range of motion of all extremities. No focal motor weakness. There is a small amount of dark red blood drainage from the top of the incision. We will go ahead and change his dressing. PLAN: B.i.d. dressing changes. We will continue to work on pain control and mobilization with the assistance of Physical Therapy. Anticipate home in the next 1 to 2 days. Job ID: [id number]
[2018-11-05] MEDS: Amlodipine 10 MG TAB PO SCH (08:13)
[2018-11-05] MEDS: Gabapentin 300 MG CAP PO SCH ×2 (08:13→20:28)
[2018-11-05] MEDS: DULoxetine 30 MG CAP PO SCH ×2 (08:14→20:28)
[2018-11-05] MEDS: Isosorbide Dinitrate 20 MG TAB PO SCH ×2 (08:14→20:28)
[2018-11-05] MEDS: Fentanyl 100 MCG/2 ML VIAL SLOW IVP PRN ×2 (08:20→17:57)
[2018-11-05] MEDS ORDERED: Docusate 100 MG CAP PO PRN (08:57)
[2018-11-05] MEDS ORDERED: Losartan 25 MG TAB PO SCH ×2 (09:00→17:23)
[2018-11-05] MEDS: Fluticasone Propionate Nasal Spray 16 gm Bottle NASAL SCH (10:09)
[2018-11-05] MEDS: Polyethylene Glycol 3350 17 GM Packet PO SCH (10:13)
[2018-11-05] MEDS: diphenhydrAMINE 25 MG CAP PO PRN ×2 (11:11→18:19)
--- NOTE | 2018-11-05 13:07 | PRG ---
DATE OF SERVICE: 11/05/2018 Mr. Alvarado is doing reasonably well. Pain control has been an issue and he had a difficult night. He has no neurologic findings or manifestations. We will continue with ambulation and pain control. Hopefully, he can be discharged shortly. Job ID: [id number]
[2018-11-05] MEDS: HumuLIN 70/30 (300 UNITS/3 ML VIAL) SC SCH (16:35)
--- NOTE | 2018-11-05 17:24 | PDOC.HOSPP ---
- Subjective Encounter Date: 11/05/18 Encounter Time: 11:30 Subjective: pt up in bed no complains - Objective Vital Signs & Weight: Vital Signs (12 hours) Temp Pulse Resp BP BP Pulse Ox 11/05/18 14:59 99.2 F 65 16 177/90 H 94 L 11/05/18 11:29 99.2 F 63 18 160/86 H 93 L 11/05/18 08:13 63 178/95 H 11/05/18 08:00 94 L 11/05/18 07:47 99.1 F 63 16 178/95 H 94 L Weight Weight 240 lb I&O: 11/04/18 11/05/18 11/06/18 06:59 06:59 06:59 Intake Total 3360 Output Total 2925 Balance 435 Additional Labs: Accuchecks 11/05/18 11/05/18 11/05/18 15:03 11:18 05:21 POC Glucose 216 H 252 H 206 H 11/04/18 21:52 POC Glucose 258 H Hospitalist ROS - Review of Systems Cardiovascular: denies: chest pain, palpitations, orthopnea, paroxysmal noc. dyspnea, edema, light headedness, other Gastrointestinal: denies: nausea, vomiting, abdominal pain, diarrhea, constipation, melena, hematochezia, other Genitourinary: denies: dysuria, frequency, incontinence, hematuria, retention, other - Medication Medications: Active Medications Generic Name Dose Route Start Last Admin Trade Name Freq PRN Reason Stop Dose Admin Hydrocodone Bitart/Acetaminophen 2 tab 11/04/18 11:28 11/05/18 11:05 [place] 10/325 PO 2 tab Q4H PRN Administration PAIN (4-6) Amlodipine Besylate 10 mg 11/05/18 09:00 11/05/18 08:13 Norvasc PO 10 mg QAM SHAWN Administration Diphenhydramine HCl 25 mg 11/04/18 11:28 11/05/18 11:11 Benadryl PO 25 mg Q6H PRN Administration Itching Duloxetine HCl 30 mg 11/04/18 21:00 11/05/18 08:14 Cymbalta PO 30 mg BID SHAWN Administration Fentanyl 25 mcg 11/04/18 19:07 11/05/18 08:20 Sublimaze SLOW IVP 25 mcg Q4HR PRN Administration Pain Fluticasone Propionate 0 gm 11/05/18 09:00 11/05/18 10:09 Flonase Nasal [place] NASAL 1 spr QAM SHAWN Administration Gabapentin 300 mg 11/04/18 21:00 11/05/18 08:13 Neurontin PO 300 mg BID SHAWN Administration Sodium Chloride 1,000 mls @ 75 mls/hr 11/04/18 11:28 11/05/18 14:49 Normal Saline 0.9% IV 1,000 mls .[id number] SHAWN Administration Insulin Human Isoph/Insulin Regular 40 units 11/05/18 16:30 11/05/18 16:35 Humulin 70/30 SC 40 unit BID-AC SHAWN Administration Insulin Human Lispro 0 units 11/04/18 20:32 11/05/18 11:37 Humalog SC 4 unit .MILD SLIDING SCALE PRN Administration Mild Correctional Scale Insulin Human Lispro 0 units 11/04/18 20:32 11/04/18 22:22 Humalog SC 3 unit .BEDTIME SLIDING SC PRN Administration Bedtime Correctional Scale Isosorbide Dinitrate 40 mg 11/04/18 21:00 11/05/18 08:14 Isordil PO 40 mg BID SHAWN Administration Losartan Potassium 12.5 mg 11/05/18 09:00 11/05/18 08:17 Cozaar PO 12.5 mg DAILY SHAWN Administration Meperidine HCl 25 mg 11/04/18 11:28 11/05/18 06:03 Demerol SLOW IVP 25 mg Q2H PRN Administration Moderate Breakthrough Pain Meperidine HCl 35 mg 11/04/18 11:28 11/05/18 11:05 Demerol SLOW IVP 35 mg Q2H PRN Administration Severe Breakthrough Pain Pantoprazole Sodium 20 mg 11/05/18 09:00 11/05/18 08:14 Protonix PO 20 mg QAM SHAWN Administration Polyethylene Glycol 17 gm 11/05/18 09:00 11/05/18 10:13 Miralax PO 17 gm DAILY SHAWN Administration Simvastatin 40 mg 11/04/18 21:00 11/04/18 20:51 Zocor PO 40 mg QPM SHAWN Administration Sodium Chloride 10 ml 11/04/18 21:00 11/05/18 08:17 Flush - Normal Saline IVF 10 ml Q12HR SHAWN Administration Tizanidine HCl 4 mg 11/04/18 11:28 11/05/18 02:48 Zanaflex PO 4 mg Q6H PRN Administration MUSCLE SPASM Tramadol HCl 100 mg 11/04/18 11:28 11/04/18 13:13 Ultram PO 100 mg Q6H PRN Administration PAIN (4-6) - Exam Neck: negative: supple, symmetric, no JVD, no thyromegaly, no lymphadenopathy, no carotid bruit, JVD Heart: negative: RRR, no murmur, no gallops, no rubs, normal peripheral pulses, irregular, diminshed peripheral pulses, murmur present, II/IV, III/IV Hosp A/P (1) HTN (hypertension) Code(s): I10 - ESSENTIAL (PRIMARY) HYPERTENSION Status: Acute (2) CAD (coronary artery disease) Code(s): I25.10 - ATHSCL HEART DISEASE OF [place] CORONARY ARTERY W/O ANG PCTRS Status: Acute (3) Diabetes Code(s): E11.9 - TYPE 2 DIABETES MELLITUS WITHOUT COMPLICATIONS Status: Acute (4) Status post lumbar spine surgery for decompression of spinal cord Code(s): Z98.890 - OTHER SPECIFIED POSTPROCEDURAL STATES Status: Acute - Plan will increase losartan to 50mg daily. pt's states he did not eat much. will add prn ensure. will stop fluids he is drinking fluids. I have added stool softeners.
[2018-11-05] MEDS: Simvastatin 40 MG TAB PO SCH (20:28)
[2018-11-06] MEDS: HYDROcodone/Acetaminophen 10/325 mg Tablet PO PRN ×4 (00:38→15:15)
[2018-11-06] MEDS: Meperidine HCl/PF 25 MG/ML VIAL SLOW IVP PRN ×3 (00:39→10:31)
[2018-11-06] MEDS: Amlodipine 10 MG TAB PO SCH (08:40)
[2018-11-06] MEDS: Isosorbide Dinitrate 20 MG TAB PO SCH (08:40)
[2018-11-06] MEDS: HumuLIN 70/30 (300 UNITS/3 ML VIAL) SC SCH ×2 (08:41→17:12)
[2018-11-06] MEDS: DULoxetine 30 MG CAP PO SCH (08:41)
[2018-11-06] MEDS: Fluticasone Propionate Nasal Spray 16 gm Bottle NASAL SCH (08:41)
[2018-11-06] MEDS: Gabapentin 300 MG CAP PO SCH (08:41)
[2018-11-06] MEDS: Polyethylene Glycol 3350 17 GM Packet PO SCH (08:45)
[2018-11-06] MEDS ORDERED: Losartan 25 MG TAB PO SCH (09:00)
[2018-11-06] MEDS: diphenhydrAMINE 25 MG CAP PO PRN (09:02)
[2018-11-06] MEDS: HumaLOG 300 UNITS/3 ML VIAL SC PRN (10:43)
[2018-11-06 11:49] VITALS: TEMP 97.8
--- NOTE | 2018-11-06 13:03 | DIS ---
DATE OF ADMISSION: 11/04/2018 DATE OF DISCHARGE: 11/06/2018 HOSPITAL COURSE: The patient is a 63-year-old male, who was evaluated in our office for degenerative spinal disease, having complaints of progressive back and leg pain. He underwent L4 to S1 decompression and fusion on 11/04/2018. Following the surgery, he was transitioned to the Med/Surg floor. He is essentially having significant pain issues, but this is improved and his pain is now being controlled well with p.o. medications, he is tolerating regular diet, and he is voiding appropriately. He did have some incisional drainage, but this appears to be trending down with time. On exam this morning, the patient is awake, alert, in no acute distress. He has free active range of motion of all extremities. No focal motor weakness. His incision has a small amount of serosanguineous drainage on the dressing. I discussed at length with the patient and he would like to go home today. I feel that this is appropriate. I have discussed home care precautions, we will dismiss later today. I will follow up with the patient in 2 weeks. He has been provided with scripts of [place], Zanaflex, and Keflex. Job ID: [id number]
[2018-11-06 15:52] VITALS: BP 149/88
== END 2018-11-06 17:47 | disposition home or self-care (01) | DRG 455 ==
LOC: SURG A 11-04 06:59 → SURG B 11-04 11:58 → EDSTATUS 11-04 16:00
PROVIDERS: ADMIT Neurological Surgery; ATTEND Neurological Surgery
PROC: 0SG00AJ Fusion of Lumbar Vertebral Joint with Interbody Fusion Device, Posterior Approach, Anterior Column, Open Approach (ICD-10-PCS; principal; 2018-11-04)
PROC: 0SG0071 Fusion of Lumbar Vertebral Joint with Autologous Tissue Substitute, Posterior Approach, Posterior Column, Open Approach (ICD-10-PCS; 2018-11-04)
PROC: 0SG30AJ Fusion of Lumbosacral Joint with Interbody Fusion Device, Posterior Approach, Anterior Column, Open Approach (ICD-10-PCS; 2018-11-04)
PROC: 0SG3071 Fusion of Lumbosacral Joint with Autologous Tissue Substitute, Posterior Approach, Posterior Column, Open Approach (ICD-10-PCS; 2018-11-04)
PROC: 0ST20ZZ Resection of Lumbar Vertebral Disc, Open Approach (ICD-10-PCS; 2018-11-04)
PROC: 0ST40ZZ Resection of Lumbosacral Disc, Open Approach (ICD-10-PCS; 2018-11-04)
DX: M48.061 Spinal stenosis, lumbar region without neurogenic claudication (principal); M47.26 Other spondylosis with radiculopathy, lumbar region; I25.10 Atherosclerotic heart disease of native coronary artery without angina pectoris; I10 Essential (primary) hypertension; N40.0 Benign prostatic hyperplasia without lower urinary tract symptoms; N41.1 Chronic prostatitis; M19.90 Unspecified osteoarthritis, unspecified site; E78.5 Hyperlipidemia, unspecified; F32.9 Major depressive disorder, single episode, unspecified; E11.40 Type 2 diabetes mellitus with diabetic neuropathy, unspecified; F17.210 Nicotine dependence, cigarettes, uncomplicated; I25.2 Old myocardial infarction; Z79.82 Long term (current) use of aspirin; Z79.4 Long term (current) use of insulin; Z95.5 Presence of coronary angioplasty implant and graft
CPT/HCPCS: 36416; 76000; C1713; C1768; J0690; J1100; J1815; J2001; J2175; J2405; J2704; J3010; J3370; J3490; Q0163

== ENCOUNTER 2018-11-02 16:16 | Outpatient (CLI) | payer OTHER ==
[2018-11-02 17:01] LABS: Hemoglobin 13.8 g/dL (14.0-18.0); Mean Corpuscular Hemoglobin 28.5 pg (27.0-31.0); Mean Corpuscular Volume 81.5 fL (78.0-98.0); Mean Platelet Volume 9.5 fL (7.4-10.4); Platelet Count 179 thou/uL (130-400); RBC Distribution Width 13.2 % (11.5-14.5); Red Blood Cell (RBC) Count 4.84 mill/uL (4.70-6.10); White Blood Cell (WBC) Count 6.1 thou/uL (4.8-10.8)
[2018-11-02 17:22] LABS: Anion Gap 11 mmol/L (10-20); BUN (Urea Nitrogen) 13 mg/dL (8.4-25.7); Calc. Creatinine Clearance 0 mL/min (70-130); Calcium 9.6 mg/dL (7.8-10.44); Carbon Dioxide 25 mmol/L (23-31); Chloride 106 mmol/L (98-107); Estimated GFR-MDRD Greater than 90; Glucose 173 mg/dL (80-115); Potassium 4.2 mmol/L (3.5-5.1); Sodium 138 mmol/L (136-145)
--- NOTE | 2018-11-03 12:23 | EKG ---
Test Reason : Blood Pressure : / mmHG Vent. Rate : 048 BPM Atrial Rate : 048 BPM P-R Int : 154 ms QRS Dur : 088 ms QT Int : 424 ms P-R-T Axes : -02 014 011 degrees QTc Int : 378 ms Marked sinus bradycardia Abnormal ECG When compared with ECG of 25-OCT-2018 15:57, No significant change was found Confirmed by DR. Tessie HERNANDEZ ([id number]) on 11/03/2018 12:23:08 PM Referred By: TOMEKA Confirmed By:DR. Tessie HERNANDEZ
== END 2018-11-02 16:17 | disposition home or self-care (01) ==
LOC: LABBT 16:16
PROVIDERS: ATTEND Neurological Surgery
DX: Z01.818 Encounter for other preprocedural examination (principal); M54.16 Radiculopathy, lumbar region
CPT/HCPCS: 80048; 85027; 93005; 93010

== ENCOUNTER 2018-11-19 08:41 | Outpatient (CLI) | payer OTHER ==
--- NOTE | 2018-11-19 09:13 | RAD ---
LUMBAR SPINE SERIES 2 VIEWS: HISTORY: Status post surgery 2 weeks ago. Severe pain. Right unilateral pedicle screws are noted at L4, L5, and S1. Markers of the disk implant are within the confines of the disk level. Surgical ronel are still present with a suggestion of perhaps some soft tissue swelling of the back region. IMPRESSION: Postop changes of the spine. No definite acute process. POS: LALO
== END 2018-11-19 08:42 | disposition home or self-care (01) ==
LOC: TBSIIMAG 08:41
PROVIDERS: ATTEND Neurological Surgery
DX: M54.16 Radiculopathy, lumbar region (principal); Z98.890 Other specified postprocedural states
CPT/HCPCS: 72100

== ENCOUNTER 2018-12-01 17:57 | Emergency (ER) | payer OTHER ==
[2018-12-01] MEDS ORDERED: Ondansetron PF 4 MG/2 ML Vial ONE (18:52)
[2018-12-01] MEDS ORDERED: Fentanyl 100 MCG/2 ML VIAL ONE (18:52)
[2018-12-01 18:58] LABS: ALT (SGPT) 12 U/L (8-55); AST (SGOT) 14 U/L (5-34); Albumin 3.8 g/dL (3.4-4.8); Alkaline Phosphatase 85 U/L (40-110); Anion Gap 18 mmol/L (10-20); BUN (Urea Nitrogen) 12 mg/dL (8.4-25.7); Calc. Creatinine Clearance 0 mL/min (70-130); Calcium 9.3 mg/dL (7.8-10.44); Carbon Dioxide 22 mmol/L (23-31); Chloride 104 mmol/L (98-107); Estimated GFR-MDRD Greater than 90; Globulin 3.8 g/dL (2.4-3.5); Glucose 222 mg/dL (80-115); Lipase 13 U/L (8-78); Potassium 4.3 mmol/L (3.5-5.1); Protein, Total 7.6 g/dL (5.8-8.1); Sodium 140 mmol/L (136-145)
[2018-12-01 19:06] LABS: Bilirubin, Total 0.4 mg/dL (0.2-1.2)
[2018-12-01 19:07] LABS: #Basophils 0.1 thou/uL (0.0-0.2); #Eosinphils 0.2 thou/uL (0.0-0.7); #Lymphocytes 1.9 thou/uL (1.20-3.40); #Monocytes 0.6 thou/uL (0.11-0.59); %Basophils 1.4 % (0.0-1.0); %Eosinophils 1.9 % (0.0-10.0); %Lymphocytes 21.3 % (21.0-51.0); %Monocytes 6.6 % (0.0-10.0); %Neutrophils 68.7 % (42.0-75.0); Hemoglobin 12.7 g/dL (14.0-18.0); Mean Corpuscular HGB CONC 34.1 g/dL (32.0-36.0); Mean Corpuscular Hemoglobin 27.1 pg (27.0-31.0); Mean Corpuscular Volume 79.5 fL (78.0-98.0); Mean Platelet Volume 9.5 fL (7.4-10.4); Platelet Count 261 thou/uL (130-400); RBC Distribution Width 13.7 % (11.5-14.5); Red Blood Cell (RBC) Count 4.68 mill/uL (4.70-6.10); White Blood Cell (WBC) Count 8.7 thou/uL (4.8-10.8)
--- NOTE | 2018-12-01 19:34 | CT ---
CT Stone Protocol History: Left flank pain Comparison: None. Findings: Lung bases are clear. No pericardial effusion. Aortic contour is nonaneurysmal. Normal proximal small bowel rotation. No nephroureterolithiasis or hydroureteronephrosis. No secondary evidence of a recently passed stone. Mass superior pole right kidney measuring 3.3 cm has Hounsfield unit measurement of 44. This was esteban acterized as a cyst on prior exams. Recent postoperative changes lumbar spine with posterior spinal fusion hardware and interconnecting r od on the right L4-S1 without migration of the discectomy cage is. There does appear to be high density material in the left lateral recess and subforaminal zone L5/S1 which may reflect residual di sc extrusion. Intact left hip arthroplasty. 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 Noncontrast evaluation of the liver, gallbladder, spleen, pancreas are unremarkable. No retroperitone al periaortic adenopathy. Impression: 1. No nephroureterolithiasis or hydroureteronephrosis. No secondary evidence of a recently passed sto ne. 2. Mass of the superior pole right kidney which has been previously characterized as a cyst. 3. Likely residual disc extrusion in the left lateral recess and subforaminal zone at L5/S1.
[2018-12-01 19:46] LABS: Bilirubin Negative (Negative); Blood, Urine Large (Negative); Glucose, Urine (Dipstick) Negative (Negative); Leukocyte Large (Negative); Nitrite Negative (Negative); Protein, Urine (Dipstick) 100 mg/dL (Neg-Trace)
[2018-12-01 19:54] LABS: Bacteria/HPF 2+ HPF (None Seen); Clarity Cloudy (Clear); Squamous Epithelial 0-3 HPF (0-3); WBC/HPF 21-50 HPF (0-3)
[2018-12-01] MEDS ORDERED: cefTRIAXone\\ROCEPHIN 1 GM VIAL ONE (20:38)
[2018-12-01] MEDS ORDERED: Acetaminophen 500 MG TAB ONE (20:38)
== END 2018-12-01 21:29 | disposition home or self-care (01) ==
LOC: SCSER 17:57
DX: N30.00 Acute cystitis without hematuria (principal); I25.10 Atherosclerotic heart disease of native coronary artery without angina pectoris; I25.2 Old myocardial infarction; E11.9 Type 2 diabetes mellitus without complications; E78.5 Hyperlipidemia, unspecified; E78.00 Pure hypercholesterolemia, unspecified; I10 Essential (primary) hypertension; F41.9 Anxiety disorder, unspecified; F32.9 Major depressive disorder, single episode, unspecified; F17.210 Nicotine dependence, cigarettes, uncomplicated; Z79.899 Other long term (current) drug therapy; Z79.4 Long term (current) use of insulin
CPT/HCPCS: 74176; 80053; 81003; 81015; 83690; 85025; 87077; 87086; 87186; 96361; 96365; 96375; J0696; J2405; J3010

== ENCOUNTER 2019-01-06 13:53 | Outpatient (CLI) | payer OTHER ==
--- NOTE | 2019-01-06 14:55 | RAD ---
Lumbar spine 2 views: 01/06/2019 COMPARISON: 11/19/2018 HISTORY: Evaluate lumbar spine following surgery FINDINGS: The cutaneous ronel present on the prior examination abdomen removed. There is an incompl etely imaged hip prosthesis on the left. Stable intervertebral disc devices are present at L4-5 and L5-S1. Stable right-sided L4, L5, and S1 p edicle screw with vertically oriented interlocking melody. Lower lumbar spine facet hypertrophy noted, left greater than right, most prominent at the L4-5 and L5-S1 level. No acute osseous abnormality. IMPRESSION: Degenerative and postoperative change within the lumbar spine as described above.
== END 2019-01-06 13:54 | disposition home or self-care (01) ==
LOC: TBSIIMAG 13:53
PROVIDERS: ATTEND Neurological Surgery
DX: M47.26 Other spondylosis with radiculopathy, lumbar region (principal); Z98.890 Other specified postprocedural states
CPT/HCPCS: 72100

== ENCOUNTER 2019-04-13 14:46 | Outpatient (CLI) | payer OTHER ==
--- NOTE | 2019-04-13 15:31 | RAD ---
LUMBAR SPINE SERIES TWO VIEWS: 04/13/19 HISTORY: Follow-up surgery. COMPARISON: 01/06/19 study. Right unilateral pedicle screws are seen at L4, L5 and S1. Markers of disc implants are within the in tervening disc levels. These changes appear stable as compared to the prior exam. IMPRESSION: Stable postop change. POS: LALO
== END 2019-04-13 14:47 | disposition home or self-care (01) ==
LOC: TBSIIMAG 14:46
PROVIDERS: ATTEND Neurological Surgery
DX: M43.16 Spondylolisthesis, lumbar region (principal); Z98.890 Other specified postprocedural states
CPT/HCPCS: 72100

== ENCOUNTER 2019-07-07 09:44 | Outpatient (CLI) | payer OTHER ==
--- NOTE | 2019-07-07 10:21 | RAD ---
EXAM: XR Lumbar Spine 2 Or 3 View PROVIDED CLINICAL HISTORY: Low back pain. Follow-up postsurgery. COMPARISON: 04/13/2019 FINDINGS: Postoperative changes lower lumbar spine are again seen with right sided pedicular screws and posteri or rods transfixing the L4-5 and L5-S1 levels. No hardware complication is seen. Intradiscal prostheses are again noted in place and unchanged in position. Grade 1 anterolisthesis of L5 on S1 is again present with suggestion of trace anterolisthesis of L4 on L5. Vertebral body heights are within normal limits. Postoperative changes left hip are again seen with vascular calcifications in the abdominal aorta. IMPRESSION: Stable postoperative changes lower lumbar spine.
== END 2019-07-07 09:45 | disposition home or self-care (01) ==
LOC: TBSIIMAG 09:44
PROVIDERS: ATTEND Neurological Surgery
DX: M54.5 Low back pain (principal); Z98.890 Other specified postprocedural states
CPT/HCPCS: 72100

== ENCOUNTER 2022-07-02 13:49 | Outpatient (CLI) | payer MEDICARE, MEDICAID ==
[2022-07-02 15:48] LABS: Hemoglobin 11.8 g/dL (13.5-17.5); Mean Corpuscular HGB CONC 34.6 g/dL (32.0-36.0); Mean Corpuscular Hemoglobin 25.7 pg (27.0-33.0); Mean Corpuscular Volume 74.3 fl (81.2-95.1); Mean Platelet Volume 11.4 fl (7.4-10.4); Platelet Count 237 10x3/uL (150-450); RBC Distribution Width 16.2 % (11.5-14.5); Red Blood Cell (RBC) Count 4.59 10x6/uL (4.32-5.72); White Blood Cell (WBC) Count 6.2 10x3/uL (3.5-10.5)
[2022-07-02 16:03] LABS: Anion Gap 14 mmol/L (10-20); BUN (Urea Nitrogen) 13 mg/dL (8.4-25.7); Calc. Creatinine Clearance 0 mL/min (70-130); Calcium 8.9 mg/dL (7.8-10.44); Carbon Dioxide 24 mmol/L (23-31); Chloride 109 mmol/L (98-107); Estimated GFR 76; Glucose 82 mg/dL (80-115); Potassium 4.7 mmol/L (3.5-5.1); Sodium 142 mmol/L (136-145)
== END 2022-07-02 13:50 | disposition home or self-care (01) ==
LOC: LABBT 13:49
PROVIDERS: ATTEND Neurological Surgery
DX: Z01.812 Encounter for preprocedural laboratory examination (principal); M54.16 Radiculopathy, lumbar region
CPT/HCPCS: 80048; 85027

== ENCOUNTER 2022-07-02 14:00 | Inpatient (IN) | payer MEDICARE, MEDICAID ==
[2022-07-02 15:03] VITALS: BMI 29.5
[2022-07-08] MEDS ORDERED: Vancomycin 1 GM VIAL ONE (06:27)
[2022-07-08] MEDS ORDERED: fentaNYL PF 100 MCG/2 ML SYRINGE ONE (06:35)
[2022-07-08] MEDS ORDERED: CEFAZOLIN 2 GM VIAL ONE (07:08)
[2022-07-08] MEDS ORDERED: Sodium Chloride 0.9% 100 ML ONE (07:08)
[2022-07-08] MEDS ORDERED: Promethazine HCl 25 MG/ML VIAL IM PRN ×2 (07:10→07:19)
[2022-07-08] MEDS ORDERED: diphenhydrAMINE 50 MG/ML VIAL IVP PRN (07:10)
[2022-07-08] MEDS ORDERED: traMADol HCl 50 MG TAB PO PRN (07:10)
[2022-07-08] MEDS ORDERED: Milk Of Magnesia 30 ML UDCUP PO PRN (07:10)
[2022-07-08] MEDS ORDERED: Promethazine 25 MG TAB PO PRN (07:10)
[2022-07-08] MEDS ORDERED: Ondansetron PF 4 MG/2 ML Vial IVP PRN (07:10)
[2022-07-08] MEDS ORDERED: Mag-Al 1200 mg/1200 mg/30 ML UDCUP PO PRN (07:10)
[2022-07-08] MEDS ORDERED: Acetaminophen/Codeine 30-300mg Tablet PO PRN (07:10)
[2022-07-08] MEDS ORDERED: HumaLOG 300 UNITS/3 ML VIAL SC PRN (07:17)
[2022-07-08] MEDS ORDERED: Dextrose 50% Abboject 50 ML SYRINGE SLOW IVP PRN (07:17)
[2022-07-08] MEDS ORDERED: Dextrose 5% in Water 1,000 ML IV PRN (07:17)
[2022-07-08] MEDS ORDERED: Ondansetron HCl/PF 4 MG/2 ML Vial IVP PRN (07:19)
[2022-07-08] MEDS ORDERED: fentaNYL 50 mcg/mL 1 mL Vial SLOW IVP PRN (07:22)
[2022-07-08] MEDS ORDERED: PROPOFOL 200 MG/20 ML VIAL ONE (07:28)
[2022-07-08] MEDS ORDERED: Ondansetron PF 4 MG/2 ML Vial ONE (07:28)
[2022-07-08] MEDS ORDERED: Rocuronium Bromide 10 MG/ML (10ML VIAL) ONE (07:28)
[2022-07-08] MEDS ORDERED: ePHEDrine Sulfate 50 MG/10 ML VIAL ONE (07:28)
[2022-07-08] MEDS ORDERED: NEOSTIGMINE 3 MG/3 ML SYR 3 MG/3 ML SYRINGE ONE (07:28)
[2022-07-08] MEDS ORDERED: Lidocaine 1% PF 5 ML VIAL ONE (07:28)
[2022-07-08] MEDS ORDERED: SUGAMMADEX SODIUM 200 MG/2 ML VIAL ONE (08:30)
[2022-07-08] MEDS ORDERED: fentaNYL 50 mcg/mL 1 mL Vial ONE ×3 (08:46→11:18)
[2022-07-08] MEDS ORDERED: HYDROmorphone 0.5 MG/0.5 ML SYRINGE ONE ×3 (09:06→10:09)
[2022-07-08] MEDS: metFORMIN 500 MG TAB PO SCH ×2 (12:03→16:23)
[2022-07-08] MEDS: Sodium Chloride 0.9% 1,000 ML IV SCH ×2 (12:03→19:57)
[2022-07-08] MEDS: Bupropion 150 MG XL TAB PO SCH (12:03)
[2022-07-08] MEDS: Gabapentin 300 MG CAP PO SCH ×3 (12:03→19:54)
[2022-07-08] MEDS: Amlodipine 10 MG TAB PO SCH (12:03)
[2022-07-08] MEDS: DULoxetine 60 MG CAP PO SCH (12:03)
[2022-07-08] MEDS: Isosorbide Dinitrate 20 MG TAB PO SCH ×2 (12:04→19:54)
[2022-07-08] MEDS: Losartan 25 MG TAB PO SCH (12:04)
[2022-07-08] MEDS ORDERED: Nitroglycerin 0.4 MG TAB (25 Tab Bottle) SL PRN (12:30)
[2022-07-08 12:35] LABS: #Eosinphils 0.1 thou/uL (0.0-0.7); #Monocytes 0.5 thou/uL (0.11-0.59); #Neutrophils 5.2 thou/uL (1.40-6.50); %Basophils 0.4 % (0.0-1.0); %Lymphocytes 20.9 % (21.0-51.0); %Neutrophils 70.4 % (42.0-75.0); Hemoglobin 11.9 g/dL (14.0-18.0); Mean Corpuscular HGB CONC 33.7 g/dL (32.0-36.0); Mean Corpuscular Hemoglobin 25.6 pg (27.0-31.0); Mean Corpuscular Volume 76.1 fl (78.0-98.0); Mean Platelet Volume 10.8 fL (7.4-10.4); Platelet Count 195 10x3/uL (130-400); RBC Distribution Width 16.1 % (11.5-14.5); Red Blood Cell (RBC) Count 4.64 mill/uL (4.70-6.10); White Blood Cell (WBC) Count 7.3 10x3/uL (4.8-10.8)
[2022-07-08 13:05] LABS: ALT (SGPT) 26 U/L (8-55); AST (SGOT) 31 U/L (5-34); Albumin 3.9 g/dL (3.4-4.8); Alkaline Phosphatase 57 U/L (40-110); Anion Gap 12 mmol/L (10-20); BUN (Urea Nitrogen) 18 mg/dL (8.4-25.7); Bilirubin, Total 0.7 mg/dL (0.2-1.2); Calc. Creatinine Clearance 88 mL/min (70-130); Calcium 8.8 mg/dL (7.8-10.44); Carbon Dioxide 24 mmol/L (23-31); Chloride 104 mmol/L (98-107); Estimated GFR 65; Globulin 2.6 g/dL (2.4-3.5); Glucose 213 mg/dL (80-115); Magnesium 1.8 mg/dL (1.6-2.6); Phosphorus 3.3 mg/dL (2.3-4.7); Potassium 4.5 mmol/L (3.5-5.1); Protein, Total 6.5 g/dL (5.8-8.1); Sodium 135 mmol/L (136-145)
[2022-07-08] MEDS: CEFAZOLIN 2 GM in Sodium Chloride 0.9% 100 ML IVPB SCH ×2 (14:15→21:57)
[2022-07-08] MEDS: Acetaminophen/Codeine 30-300mg Tablet PO PRN ×2 (14:15→19:53)
[2022-07-08] MEDS: Cyclobenzaprine 10 MG TAB PO PRN (14:15)
[2022-07-08] MEDS: HumuLIN 70/30 100 Unit/ ml Vial SC SCH (16:23)
[2022-07-08] MEDS ORDERED: HumuLIN 70/30 (300 UNITS/3 ML VIAL) SC SCH (16:30)
[2022-07-08] MEDS ORDERED: Tamsulosin HCl 0.4 MG CAP PO SCH (21:00)
[2022-07-08] MEDS ORDERED: Atorvastatin Calcium 10 MG TAB PO SCH (21:00)
[2022-07-08] MEDS ORDERED: Latanoprost 0.005% Ophth Soln 2.5 ml Bottle EA EYE SCH (21:00)
[2022-07-09] MEDS: Acetaminophen/Codeine 30-300mg Tablet PO PRN ×3 (02:03→10:10)
[2022-07-09] MEDS: Cyclobenzaprine 10 MG TAB PO PRN ×2 (02:04→10:10)
[2022-07-09 06:08] LABS: Hemoglobin A1c 6.7 % (4.0-6.0)
[2022-07-09] MEDS: HumuLIN 70/30 100 Unit/ ml Vial SC SCH (06:08)
[2022-07-09 08:31] VITALS: BP 167/91; TEMP 98.4
[2022-07-09] MEDS: Amlodipine 10 MG TAB PO SCH (08:55)
[2022-07-09] MEDS: metFORMIN 500 MG TAB PO SCH (08:55)
[2022-07-09] MEDS: Isosorbide Dinitrate 20 MG TAB PO SCH (08:56)
[2022-07-09] MEDS: Bupropion 150 MG XL TAB PO SCH (08:56)
[2022-07-09] MEDS: DULoxetine 60 MG CAP PO SCH (08:56)
[2022-07-09] MEDS: Losartan 25 MG TAB PO SCH (08:57)
[2022-07-09] MEDS: Gabapentin 300 MG CAP PO SCH (08:57)
[2022-07-09] MEDS: Sodium Chloride 0.9% 1,000 ML IV SCH (08:57)
[2022-07-09] MEDS ORDERED: Fluticasone Propionate Nasal Spray 16 gm Bottle NASAL SCH (09:00)
== END 2022-07-09 10:38 | disposition home or self-care (01) | DRG 460 ==
LOC: SURG A 07-08 05:51
PROVIDERS: ADMIT Neurological Surgery; ATTEND Neurological Surgery
PROC: 0SG0071 Fusion of Lumbar Vertebral Joint with Autologous Tissue Substitute, Posterior Approach, Posterior Column, Open Approach (ICD-10-PCS; principal; 2022-07-08)
PROC: 0SG3071 Fusion of Lumbosacral Joint with Autologous Tissue Substitute, Posterior Approach, Posterior Column, Open Approach (ICD-10-PCS; 2022-07-08)
PROC: 0SP004Z Removal of Internal Fixation Device from Lumbar Vertebral Joint, Open Approach (ICD-10-PCS; 2022-07-08)
PROC: 0SP304Z Removal of Internal Fixation Device from Lumbosacral Joint, Open Approach (ICD-10-PCS; 2022-07-08)
PROC: 3E0U0GB Introduction of Recombinant Bone Morphogenetic Protein into Joints, Open Approach (ICD-10-PCS; 2022-07-08)
DX: T84.226A Displacement of internal fixation device of vertebrae, initial encounter (principal); M54.16 Radiculopathy, lumbar region; Y83.8 Other surgical procedures as the cause of abnormal reaction of the patient, or of later complication, without mention of misadventure at the time of the procedure; I10 Essential (primary) hypertension; E78.5 Hyperlipidemia, unspecified; I25.10 Atherosclerotic heart disease of native coronary artery without angina pectoris; F17.210 Nicotine dependence, cigarettes, uncomplicated; K21.9 Gastro-esophageal reflux disease without esophagitis; N40.0 Benign prostatic hyperplasia without lower urinary tract symptoms; Z96.642 Presence of left artificial hip joint; Z98.41 Cataract extraction status, right eye; Z88.5 Allergy status to narcotic agent; Z88.2 Allergy status to sulfonamides; Z95.5 Presence of coronary angioplasty implant and graft; Z88.8 Allergy status to other drugs, medicaments and biological substances; Z98.42 Cataract extraction status, left eye; Z79.82 Long term (current) use of aspirin; Z79.4 Long term (current) use of insulin; Z79.84 Long term (current) use of oral hypoglycemic drugs; Z79.899 Other long term (current) drug therapy; Z80.0 Family history of malignant neoplasm of digestive organs; Z80.1 Family history of malignant neoplasm of trachea, bronchus and lung; Z80.8 Family history of malignant neoplasm of other organs or systems
CPT/HCPCS: 36415; 36416; 80053; 83036; 83735; 84100; 85025; C1713; J1170; J1815; J2405; J2704; J3010; J3370; J3490

== ENCOUNTER 2023-07-30 07:29 | Outpatient (CLI) | payer MEDICARE, MEDICAID | END 2023-07-30 07:30 | disposition home or self-care (01) | LOC: NM 07:29 | PROVIDERS: ATTEND Internal Medicine | DX: Z12.2 Encounter for screening for malignant neoplasm of respiratory organs (principal); F17.210 Nicotine dependence, cigarettes, uncomplicated; R11.0 Nausea; K30 Functional dyspepsia | CPT/HCPCS: 71271; 78264; A9541 ==

== ENCOUNTER 2023-08-19 13:16 | Outpatient (CLI) | payer MEDICARE, MEDICAID | END 2023-08-19 13:17 | disposition home or self-care (01) | LOC: SCSMRI 13:16 | PROVIDERS: ATTEND Nurse Practitioner Family | DX: M96.1 Postlaminectomy syndrome, not elsewhere classified (principal); M47.816 Spondylosis without myelopathy or radiculopathy, lumbar region; M47.817 Spondylosis without myelopathy or radiculopathy, lumbosacral region; M51.36 Other intervertebral disc degeneration, lumbar region; M51.37 Other intervertebral disc degeneration, lumbosacral region; M48.061 Spinal stenosis, lumbar region without neurogenic claudication; M48.07 Spinal stenosis, lumbosacral region; M47.815 Spondylosis without myelopathy or radiculopathy, thoracolumbar region | CPT/HCPCS: 72148 ==

== ENCOUNTER 2023-12-11 10:43 | Outpatient (CLI) | payer MEDICARE, MEDICAID ==
[2023-12-11 12:38] LABS: Hematocrit 38.2 % (42.0-52.0); Hemoglobin 13.6 g/dL (14.0-18.0); Mean Corpuscular HGB CONC 35.6 g/dL (32.0-36.0); Mean Corpuscular Hemoglobin 27.2 pg (27.0-31.0); Mean Corpuscular Volume 76.4 fL (78.0-98.0); Mean Platelet Volume 12.1 fL (7.4-10.4); Platelet Count 242 10x3/uL (130-400); RBC Distribution Width 14.6 % (11.5-14.5)
[2023-12-11 12:56] LABS: Anion Gap 11 mmol/L (10-20); BUN (Urea Nitrogen) 13 mg/dL (8.4-25.7); Calc. Creatinine Clearance 0 mL/min (70-130); Carbon Dioxide 23 mmol/L (23-31); Chloride 108 mmol/L (98-107); Estimated GFR 83; Glucose 195 mg/dL (80-115); Potassium 4.3 mmol/L (3.5-5.1); Sodium 138 mmol/L (136-145)
== END 2023-12-11 10:44 | disposition home or self-care (01) ==
LOC: LABBT 10:43
PROVIDERS: ATTEND Neurological Surgery
DX: Z01.818 Encounter for other preprocedural examination (principal); M48.062 Spinal stenosis, lumbar region with neurogenic claudication
CPT/HCPCS: 80048; 85027

== ENCOUNTER 2023-12-15 06:00 | Observation (INO) | payer MEDICARE, MEDICAID ==
[2023-12-11 11:19] VITALS: BMI 29.5
[2023-12-15] MEDS ORDERED: Vancomycin 1 GM VIAL ONE (06:45)
[2023-12-15] MEDS ORDERED: Rocuronium Bromide 10 MG/ML (10ML VIAL) ONE (07:05)
[2023-12-15] MEDS ORDERED: Lidocaine 2% PF 5 ML VIAL ONE (07:05)
[2023-12-15] MEDS ORDERED: Fentanyl 250 MCG/5 ML VIAL ONE (07:05)
[2023-12-15] MEDS ORDERED: PROPOFOL 20 ML ONE (07:05)
[2023-12-15] MEDS ORDERED: MINERAL OIL/WHITE PETROLATUM 3.5 GM TUBE ONE (07:05)
[2023-12-15] MEDS ORDERED: HYDROcodone/Acetaminophen 10/325 mg Tablet PO PRN (07:12)
[2023-12-15] MEDS ORDERED: Ondansetron PF 4 MG/2 ML Vial IVP PRN (07:12)
[2023-12-15] MEDS ORDERED: Mag-Al 1200 mg/1200 mg/30 ML UDCUP PO PRN (07:12)
[2023-12-15] MEDS ORDERED: Milk Of Magnesia 30 ML UDCUP PO PRN (07:12)
[2023-12-15] MEDS ORDERED: Promethazine 25 MG TAB PO PRN (07:12)
[2023-12-15] MEDS ORDERED: Acetaminophen 325 MG TAB PO PRN (07:12)
[2023-12-15] MEDS ORDERED: traMADol HCl 50 MG TAB PO PRN (07:12)
[2023-12-15] MEDS ORDERED: diphenhydrAMINE 50 MG/ML VIAL IVP PRN (07:12)
[2023-12-15] MEDS ORDERED: Cyclobenzaprine 10 MG TAB PO PRN (07:12)
[2023-12-15] MEDS ORDERED: fentaNYL 50 mcg/mL 1 mL Vial SLOW IVP PRN (07:12)
[2023-12-15] MEDS ORDERED: Insulin Lispro 100 UNIT/ML 10 ML VIAL SC PRN (07:16)
[2023-12-15] MEDS ORDERED: CEFAZOLIN 2 GM VIAL ONE (07:16)
[2023-12-15] MEDS ORDERED: Glucagon 1 MG/ML KIT IM PRN (07:16)
[2023-12-15] MEDS ORDERED: Dextrose 50% Abboject 50 ML SYRINGE SLOW IVP PRN (07:16)
[2023-12-15] MEDS ORDERED: Dextrose 5% in Water 1,000 ML IV PRN (07:16)
[2023-12-15] MEDS ORDERED: Dextrose 50% Abboject 50 ML SYRINGE ONE (07:19)
[2023-12-15] MEDS ORDERED: Ondansetron PF 4 MG/2 ML Vial ONE (07:51)
[2023-12-15] MEDS ORDERED: Dexamethasone 4 mg/ml Vial ONE (07:51)
[2023-12-15] MEDS ORDERED: SUGAMMADEX SODIUM 200 MG/2 ML VIAL ONE (07:57)
[2023-12-15] MEDS ORDERED: ePHEDrine Sulfate 50 MG/10 ML VIAL ONE (08:37)
[2023-12-15] MEDS ORDERED: fentaNYL PF 100 MCG/2 ML SYRINGE ONE (09:37)
[2023-12-15] MEDS ORDERED: HYDROmorphone 0.5 MG/0.5 ML SYRINGE ONE ×2 (09:37→10:02)
[2023-12-15] MEDS: Sodium Chloride 0.9% 1,000 ML IV SCH (10:57)
[2023-12-15] MEDS: Amlodipine 10 MG TAB PO SCH (11:24)
[2023-12-15] MEDS: BuPROPion XL 150 MG ER.TAB PO SCH (11:24)
[2023-12-15] MEDS: Gabapentin 300 MG CAP PO SCH (11:24)
[2023-12-15] MEDS: DULoxetine 60 MG CAP PO SCH (11:24)
[2023-12-15] MEDS: Pantoprazole DR 40 MG TAB PO SCH (11:25)
[2023-12-15] MEDS: Losartan 25 MG TAB PO SCH (11:25)
[2023-12-15] MEDS ORDERED: Nitroglycerin 0.4 MG TAB (25 Tab Bottle) SL PRN (12:20)
[2023-12-15] MEDS: HYDROcodone/Acetaminophen 10/325 mg Tablet PO PRN (14:24)
[2023-12-15] MEDS: FLU (Fluad Triv) TS24-25 (65UP)/MF59C/PF 45 MCG/0.5 ML Syringe IM ONE (14:26)
[2023-12-15] MEDS: CEFAZOLIN 2 GM in Sodium Chloride 0.9% 100 ML IVPB SCH (16:24)
[2023-12-15] MEDS: metFORMIN 500 MG TAB PO SCH (16:31)
[2023-12-15] MEDS: HumuLIN 70/30 100 Unit/ml 10 ml Vial SC SCH (16:31)
[2023-12-15] MEDS: Isosorbide Dinitrate 20 MG TAB PO SCH (20:05)
[2023-12-15] MEDS: Atorvastatin Calcium 10 MG TAB PO SCH (20:05)
[2023-12-15] MEDS ORDERED: Gabapentin 300 MG CAP PO SCH (21:00)
[2023-12-15] MEDS: Latanoprost 0.005% Ophth Soln 2.5 ml Bottle EA EYE SCH (21:07)
[2023-12-16] MEDS ORDERED: DULoxetine 60 MG CAP PO SCH (09:00)
[2023-12-16] MEDS ORDERED: BuPROPion XL 150 MG ER.TAB PO SCH (09:00)
[2023-12-16] MEDS: Fluticasone Propionate Nasal Spray 16 gm Bottle NASAL SCH (09:02)
[2023-12-16 11:37] VITALS: BP 144/77; TEMP 97.9
== END 2023-12-16 14:40 | disposition home or self-care (01) ==
LOC: SDC 06:00 → SURG A 10:56
PROVIDERS: ADMIT Neurological Surgery; ATTEND Neurological Surgery
PROC: 00NY0ZZ Release Lumbar Spinal Cord, Open Approach (ICD-10-PCS; principal; 2023-12-15)
DX: M48.062 Spinal stenosis, lumbar region with neurogenic claudication (principal); I12.9 Hypertensive chronic kidney disease with stage 1 through stage 4 chronic kidney disease, or unspecified chronic kidney disease; N18.9 Chronic kidney disease, unspecified; E78.5 Hyperlipidemia, unspecified; G47.33 Obstructive sleep apnea (adult) (pediatric); F41.9 Anxiety disorder, unspecified; F32.A Depression, unspecified; F17.200 Nicotine dependence, unspecified, uncomplicated; Z96.642 Presence of left artificial hip joint; Z98.61 Coronary angioplasty status; Z98.890 Other specified postprocedural states; Z88.2 Allergy status to sulfonamides; Z88.8 Allergy status to other drugs, medicaments and biological substances; Z88.5 Allergy status to narcotic agent; Z79.82 Long term (current) use of aspirin
CPT/HCPCS: 63047; 63048 ×2; 82962 ×2; 97116; 97530; C1713; J1100; J2405; J2704; J3010; J3370; J7999; 36416; J1170; J1815

== ENCOUNTER 2023-12-19 16:38 | Emergency (ER) | payer MEDICARE, MEDICAID ==
[2023-12-19] MEDS ORDERED: Ondansetron ODT 4 MG TAB ONE (17:39)
[2023-12-19] MEDS ORDERED: HYDROcodone/Acetaminophen 10/325 mg Tablet ONE (17:40)
[2023-12-19 18:51] LABS: ALT (SGPT) 15 U/L (8-55); AST (SGOT) 14 U/L (5-34); Albumin 3.3 g/dL (3.4-4.8); Alkaline Phosphatase 62 U/L (40-110); Anion Gap 11 mmol/L (10-20); BUN (Urea Nitrogen) 17 mg/dL (8.4-25.7); Bilirubin, Total 0.6 mg/dL (0.2-1.2); Calc. Creatinine Clearance 0 mL/min (70-130); Calcium 8.8 mg/dL (7.8-10.44); Carbon Dioxide 25 mmol/L (23-31); Chloride 105 mmol/L (98-107); Estimated GFR 80; Globulin 3.2 g/dL (2.4-3.5); Glucose 120 mg/dL (80-115); Potassium 4.3 mmol/L (3.5-5.1); Protein, Total 6.5 g/dL (5.8-8.1); Sodium 137 mmol/L (136-145)
[2023-12-19 19:21] LABS: Eosinophils 3 % (0-10); Hypochromia SLIGHT = 6-15 cells HPF (0-5); Large Platelets 8.7 % (0-5); Lymphocytes 27 % (21-51); Microcytosis SLIGHT = 6-15 cells HPF (0-5); Monocytes 9 % (0-10); Neutrophil 58 % (42-75); Platelet Adequacy Comment Platelets Normal; Polychromasia SLIGHT = 2-3 cells HPF (0-2); Reactive Lymphocytes 2 % (0-10); Target Cells MODERATE= 6-15 cells HPF (0-1)
[2023-12-19 19:26] LABS: Hematocrit 33.3 % (42.0-52.0); Mean Corpuscular Hemoglobin 27.3 pg (27.0-31.0); Mean Corpuscular Volume 75.9 fL (78.0-98.0); Mean Platelet Volume 10.8 fL (7.4-10.4); Platelet Count 210 10x3/uL (130-400); RBC Distribution Width 14.3 % (11.5-14.5); Red Blood Cell (RBC) Count 4.39 mill/uL (4.70-6.10)
== END 2023-12-19 20:03 | disposition home or self-care (01) ==
LOC: ERS 16:38
DX: Z47.89 Encounter for other orthopedic aftercare (principal); I10 Essential (primary) hypertension; E11.40 Type 2 diabetes mellitus with diabetic neuropathy, unspecified; I25.10 Atherosclerotic heart disease of native coronary artery without angina pectoris; I25.2 Old myocardial infarction; F17.210 Nicotine dependence, cigarettes, uncomplicated; Z95.5 Presence of coronary angioplasty implant and graft; Z55.0 Illiteracy and low-level literacy
CPT/HCPCS: 80053; 83605; 85025; Q0162; 36415; 99283

== ENCOUNTER 2024-09-30 11:02 | Outpatient (CLI) | payer MEDICARE, MEDICAID | END 2024-09-30 11:03 | disposition home or self-care (01) | LOC: SCSMRI 11:02 | PROVIDERS: ATTEND Specialist | DX: M54.16 Radiculopathy, lumbar region (principal); M48.061 Spinal stenosis, lumbar region without neurogenic claudication; M48.07 Spinal stenosis, lumbosacral region | CPT/HCPCS: 72148 ==